=== PATIENT | male | born 1985 | race Caucasian/White ===

== ENCOUNTER 2016-08-14 05:56 | Emergency (ER) | payer MEDICAID ==
[~2016-08-14] VITALS: Ht 182.9 cm; Wt 131.5 kg
[2016-08-14 06:15] VITALS: BP 119/68
[2016-08-14] MEDS ORDERED: IBUPROFEN 600 MG TABLET PO ONE ×2 (06:30→06:33)
== END 2016-08-14 08:43 | disposition home or self-care (01) ==
LOC: ER 06:01
DX: M54.2 Cervicalgia (principal); M41.9 Scoliosis, unspecified; F17.200 Nicotine dependence, unspecified, uncomplicated; Z88.6 Allergy status to analgesic agent; V19.9XXA Pedal cyclist (driver) (passenger) injured in unspecified traffic accident, initial encounter; Y93.55 Activity, bike riding; Y92.89 Other specified places as the place of occurrence of the external cause; Y99.9 Unspecified external cause status
CPT/HCPCS: 72050; 99284; A4606; Z7610